=== PATIENT | female | born 1975 | race Caucasian/White ===

== ENCOUNTER → 2024-04-06 11:57 | Outpatient (REF) | payer BC, MEDICARE, SELFPAY | LOC: RAD 11:57 | PROVIDERS: ATTENDING PHYSICIAN Internal Medicine Rheumatology; FAMILY PHYSICIAN Family Medicine; REFERRING PHYSICIAN Internal Medicine Critical Care Medicine | DX: M25.571 Pain in right ankle and joints of right foot (principal); J45.991 Cough variant asthma; R05.3 Chronic cough | CPT/HCPCS: 71046; 73630 ==